=== PATIENT | male | born 1995 | race Caucasian/White ===

== ENCOUNTER 2019-05-24 16:39 | Emergency (ER) | payer SELFPAY ==
[~2019-05-24] VITALS: Ht 182.9 cm; Wt 68.2 kg
[2019-05-24 17:00] VITALS: Ht 182.9 cm; Wt 68.2 kg
[2019-05-24] MEDS ORDERED: VOLTAREN75 MG PO (19:12)
[2019-05-24] MEDS ORDERED: KEFLEX500 MG PO (19:12)
[2019-05-24 19:29] VITALS: BP 128/88
== END 2019-05-24 19:25 | disposition home or self-care (01) ==
LOC: D.ER 16:39
DX: S81.012A Laceration without foreign body, left knee, initial encounter (principal); W29.3XXA Contact with powered garden and outdoor hand tools and machinery, initial encounter; Y93.9 Activity, unspecified; Y92.9 Unspecified place or not applicable

== ENCOUNTER 2019-10-07 08:35 | Emergency (ER) | payer SELFPAY ==
[~2019-10-07] VITALS: Ht 182.9 cm; Wt 68.2 kg
[~2019-10-07 08:35] MED LIST: KEFLEX500 MG PO; VOLTAREN75 MG PO
[2019-10-07 08:40] VITALS: BP 108/73; Ht 182.9 cm; Wt 68.2 kg
[2019-10-07] MEDS ORDERED: KEFLEX500 MG PO (09:30)
== END 2019-10-07 10:14 | disposition home or self-care (01) ==
LOC: D.ER 08:35
DX: S81.012A Laceration without foreign body, left knee, initial encounter (principal); W45.8XXA Other foreign body or object entering through skin, initial encounter; Y93.9 Activity, unspecified; Y92.9 Unspecified place or not applicable